=== PATIENT | male | born 1960 | race Caucasian/White ===

== ENCOUNTER 2022-08-09 09:08 | Emergency (ER) | payer BC, OTHER ==
[2022-08-09 09:18] VITALS: BP 177/99; PULSE 67; RESP 16; TEMP 98
--- NOTE | 2022-08-09 10:10 | XR ---
EXAMINATION TYPE: XR shoulder complete RT DATE OF EXAM: 08/09/2022 CLINICAL HISTORY: pain TECHNIQUE: Three views of the right shoulder are obtained. COMPARISON: None FINDINGS: There is no acute fracture/dislocation evident. The acromioclavicular and glenohumeral bryn int spaces appear within normal limits. The visualized ribs are intact and unremarkable. IMPRESSION: 1. There is no acute fracture or dislocation. ICD 10 NO FRACTURE, INITIAL EVALUATION
--- NOTE | 2022-08-09 10:27 | ED ---
Upper Extremity HPI - General Chief Complaint: Extremity Injury, Upper Stated Complaint: Rt shoulder pain Time Seen by Provider: 08/09/22 09:14 Source: patient, RN notes reviewed Mode of arrival: ambulatory Limitations: no limitations - History of Present Illness Initial Comments: This is a 61-year-old male who presents to the emergency department for right shoulder pain. States that the pain began this morning and radiates into the neck. Denies any chest pain or known injuries. States that he is having difficulty moving it due to the pain. He is not taking anything for symptoms. Denies any fevers, chills, sore throat, cough, dyspnea, chest pain, palpitations, abdominal pain, nausea, vomiting, diarrhea, back pain, or headaches. MD Complaint: Injury to:: right, shoulder - Related Data Previous Rx's Medication Instructions Recorded Meclizine [Antivert] 25 mg PO TID #12 tab 09/26/14 Metaxalone [Skelaxin] 400 mg PO TID PRN #15 tablet 08/09/22 predniSONE 50 mg PO QAM 5 Days #5 tablet 08/09/22 Allergies Allergy/AdvReac Type Severity Reaction Status Date / Time No Known Allergies Allergy Verified 08/09/22 09:18 Review of Systems ROS Statement: Those systems with pertinent positive or pertinent negative responses have been documented in the HPI. ROS Other: All systems not noted in ROS Statement are negative. Past Medical History Past Medical History: No Reported History History of Any Multi-Drug Resistant Organisms: None Reported Past Surgical History: Tonsillectomy Past Psychological History: No Psychological Hx Reported Smoking Status: Never smoker Past Alcohol Use History: None Reported Past Drug Use History: None Reported General Exam Limitations: no limitations General appearance: alert, in no apparent distress Head exam: Present: atraumatic, normocephalic, normal inspection Respiratory exam: Present: normal lung sounds bilaterally. Absent: respiratory distress, wheezes, rales, rhonchi, stridor Cardiovascular Exam: Present: regular rate, normal rhythm, normal heart sounds. Absent: systolic murmur, diastolic murmur, rubs, gallop, clicks Extremities exam: Present: other (Limited active range of motion of the right shoulder secondary to pain. Mild tenderness over the right AC joint. No obvious deformities, swelling, erythema, or ecchymosis.) Neurological exam: Present: alert, oriented X3, CN II-XII intact Psychiatric exam: Present: normal affect, normal mood Skin exam: Present: warm, dry, intact, normal color. Absent: rash Course Vital Signs 08/09/22 09:16 Temperature 98 F Pulse Rate 67 Respiratory 16 Rate Blood Pressure 177/99 O2 Sat by Pulse 98 Oximetry Medical Decision Making - Medical Decision Making This is a 61-year-old male who presents to the emergency department for right shoulder pain. X-rays obtained revealing no acute irregularities. Symptoms may be related to an overuse injury or other musculoskeletal pathology. Prescription for a course of prednisone and Skelaxin provided. He is instructed to take the Skelaxin at night until he knows how it affects him, as it may be sedating. After finishing the prednisone, he is advised to alternate with ibuprofen and Tylenol. Also instructed him to apply ice for 10-15 minutes every 2-3 hours. Return precautions reviewed in depth, the patient is instructed to return to the emergency department with any new, worsening, or concerning symptoms. Patient verbalized understanding. This case was discussed in detail with the attending ED physician. Presentation, findings, and treatment plan discussed in detail as well. - Radiology Data Radiology results: report reviewed, image reviewed Disposition Clinical Impression: Right shoulder pain Disposition: HOME SELF-CARE Instructions (If sedation given, give patient instructions): Shoulder Pain (ED) Additional Instructions: Return to the emergency department with any new, worsening, or concerning symptoms. Take the prednisone as prescribed for 5 days with Tylenol. After finishing the prednisone, take ibuprofen with Tylenol for additional relief. Take the muscle relaxant at night until you know how it affects you, as it may be sedating. Do not drive or operate machinery when you are taking this. Follow up with your primary care provider next week for reevaluation of your symptoms. Prescriptions: predniSONE 50 mg PO QAM 5 Days #5 tablet Metaxalone [Skelaxin] 400 mg PO TID PRN #15 tablet PRN Reason: Pain Is patient prescribed a controlled substance at d/c from ED?: No Referrals: Aram Samayoa DO [Primary Care Provider] - 1-2 days
== END 2022-08-09 11:10 | disposition home or self-care (01) ==
LOC: EC 09:08
DX: M25.511 Pain in right shoulder (principal)
CPT/HCPCS: 99283

== ENCOUNTER 2023-11-18 09:44 | Emergency (ER) | payer OTHER ==
--- NOTE | 2023-11-18 12:21 | ED ---
General Adult HPI - General Chief complaint: Extremity Injury, Lower Stated complaint: hip pain Time Seen by Provider: 11/18/23 11:20 Source: patient, RN notes reviewed Mode of arrival: ambulatory Limitations: no limitations - History of Present Illness Initial comments: Patient 62-year-old male witha past medical history, presented to the emergency room today with chief complaint of bilateral hip pain. Patient does admit that pain has been present for many years. He states left is worse than the right and believes that the pain just has been increasing and now causing pain and discomfort on the right side as well. States he did have some time off with the holiday break and went back to work yesterday seemed to aggravate things. He tried to limit ibuprofen had little relief. No fall or bladder incontinence retention. No saddle anesthesia. Does admit at times he feels some numbness in left side of the hip that occurs more often when sleeping. He states occasionally he does lay on the side. Denies any other complaints or any other symptoms at this time. Patient denies any recent fever, chills, shortness of breath, chest pain, back pain, abdominal pain, nausea or vomiting, numbness or tingling, headaches or visual changes, or any other complaints. - Related Data Previous Rx's Medication Instructions Recorded Meclizine [Antivert] 25 mg PO TID #12 tab 09/26/14 Metaxalone [Skelaxin] 400 mg PO TID PRN #15 tablet 08/09/22 predniSONE 50 mg PO QAM 5 Days #5 tablet 08/09/22 Allergies Allergy/AdvReac Type Severity Reaction Status Date / Time No Known Allergies Allergy Verified 11/18/23 10:21 Review of Systems ROS Statement: Those systems with pertinent positive or pertinent negative responses have been documented in the HPI. ROS Other: All systems not noted in ROS Statement are negative. Past Medical History Past Medical History: No Reported History History of Any Multi-Drug Resistant Organisms: None Reported Past Surgical History: Tonsillectomy Past Psychological History: No Psychological Hx Reported Smoking Status: Never smoker Past Alcohol Use History: None Reported Past Drug Use History: None Reported General Exam - General Exam Comments Initial Comments: General: The patient is awake and alert, in no distress, and does not appear acutely ill. Eye: Pupils are equal, round and reactive to light, extra-ocular movements are intact. No nystagmus. There is normal conjunctiva bilaterally. No signs of icterus. Ears, nose, mouth and throat: There are moist mucous membranes and no oral lesions. Neck: The neck is supple, there is no tenderness or JVD. Cardiovascular: There is a regular rate and rhythm. No murmur, rub or gallop is appreciated. Respiratory: Lungs are clear to auscultation, respirations are non-labored, breath sounds are equal. No wheezes, stridor, rales, or rhonchi. Gastrointestinal: Soft nontender. Musculoskeletal: Patient is able to weight-bear weight. Does have discomfort both left and right hips worse with certain flexion, extension of the left hip. Neurological: A&O x 3. CN II-XII intact, There are no obvious motor or sensory deficits. Coordination appears grossly intact. Speech is normal. Skin: Skin is warm and dry and no rashes or lesions are noted. Psychiatric: Cooperative, appropriate mood & affect, normal judgment. Limitations: no limitations Course Vital Signs 11/18/23 11/18/23 10:18 11:30 Temperature 98.0 F 98.0 F Pulse Rate 64 61 Respiratory 18 18 Rate Blood Pressure 151/91 161/98 O2 Sat by Pulse 99 96 Oximetry Medical Decision Making - Medical Decision Making History was obtained from patient/Nurse/Family/ Initial assessment and chief complaint: Hip pain and bilateral Chronic conditions affecting care: None Social determinants affecting care: None Differential diagnosis included, but not limited to: Fracture, contusion, sprain, arthritis Any imaging that may have been performed was also reviewed. I did an independent interpretation of the patient's imaging. My interpretation of x-ray of the bilateral hips shows extensive arthritic changes. No fracture dislocation. 60-year-old male presenting to the ER today with chief complaint of bilateral hip pain. He does admit that the left is worse in the right. Patient denies any new injury or trauma. He states this progressively got worse over the last several years. Patient x-ray does show extensive arthritic changes. Was discussed about following with orthopedics for further evaluation. The patient is advised to do Tylenol Motrin as needed. Advised return if any symptoms increase worsen concerns. Disposition Clinical Impression: Hip pain Disposition: HOME SELF-CARE Condition: Good Instructions (If sedation given, give patient instructions): Arthralgia (ED) Additional Instructions: Please follow-up with orthopedics as discussed. Return to emergency room if any symptoms increase or worsen. Is patient prescribed a controlled substance at d/c from ED?: No Referrals: None,Stated [Primary Care Provider] - 1-2 days Kim Nolan, [Doctor of Osteopathic Medicine] - 1-2 days Time of Disposition: 13:19
--- NOTE | 2023-11-18 13:01 | XR ---
EXAMINATION TYPE: XR Hip Bilateral and AP pelvis DATE OF EXAM: 11/18/2023 12:13 PM CLINICAL INDICATION:Male, 62 years old with history of pain; [facility] COMPARISON: None. TECHNIQUE: XR Hip Bilateral and AP pelvis; hip was examined in the frontal and lateral projections an d a AP pelvis. FINDINGS: There is flattening of the femoral heads with [id number] articulation of the hips and ost eophyte formation. No evidence for acute process, joint dislocation or significant soft tissue swelli ng. IMPRESSION: 1. End-stage osteoarthrosis changes of the hips. 2. No evidence of fracture.
[2023-11-18 13:42] VITALS: BP 154/94; PULSE 60; RESP 17; TEMP 97.8
== END 2023-11-18 13:26 | disposition home or self-care (01) ==
LOC: EC 09:44
DX: M16.0 Bilateral primary osteoarthritis of hip (principal)
CPT/HCPCS: 73521; 99283

== ENCOUNTER → 2024-01-07 | Outpatient (CLI) | payer OTHER ==
[2024-01-07 15:02] LABS: Partial Thromboplastin Time 25.1 sec (22.0-30.0); Prothrombin Time 10.7 sec (10.0-12.5)
== END | disposition home or self-care (01) ==
LOC: LABPAT 12:56
PROVIDERS: ATTEND Orthopaedic Surgery
DX: Z01.812 Encounter for preprocedural laboratory examination (principal); M16.12 Unilateral primary osteoarthritis, left hip; Z22.322 Carrier or suspected carrier of Methicillin resistant Staphylococcus aureus
CPT/HCPCS: 36415; 85610; 85730; 86850; 86900; 86901; 87070

== ENCOUNTER → 2024-02-19 | Outpatient (CLI) | payer OTHER ==
[2024-02-19 13:05] LABS: Partial Thromboplastin Time 24.4 sec (22.0-30.0); Prothrombin Time 10.6 sec (10.0-12.5)
[2024-02-19 15:44] LABS: ALT 32 U/L (10-49); AST 15 U/L (14-35); Albumin 4.7 g/dL (3.8-4.9); Albumin/Globulin Ratio 1.81 Ratio (1.60-3.17); Alkaline Phosphatase 97 U/L (41-126); BUN/Creat Ratio 16.57 Ratio (12.00-20.00); Blood Urea Nitrogen 11.6 mg/dL (9.0-27.0); Calcium 10.3 mg/dL (8.7-10.3); Carbon Dioxide 27.9 mmol/L (21.6-31.8); Chloride 106 mmol/L (96-109); Globulin 2.6 g/dL (1.6-3.3); Glucose 132 mg/dL (70-110); Potassium 5.1 mmol/L (3.5-5.5); Sodium 143 mmol/L (135-145); Total Bilirubin 0.7 mg/dL (0.3-1.2); Total Protein 7.3 g/dL (6.2-8.2)
[2024-02-19 15:52] LABS: HCT 44.1 % (39.6-50.0); HGB 15.2 g/dL (13.0-17.0); MCH 31.1 pg (27.0-32.0); MCHC 34.5 g/dL (32.0-37.0); MCV 90.2 FL (80.0-97.0); Mean Platelet Volume 10.7 FL (9.5-12.2); NRBC Per 100 WBC 0 X 10*3/uL (0.00-0.01); Platelet Count 240 X 10*3/uL (140-440); RBC 4.89 X 10*6/uL (4.40-5.60); WBC 7.13 X 10*3/uL (4.50-10.00)
== END | disposition home or self-care (01) ==
LOC: LABPAT 11:24
PROVIDERS: ATTEND Orthopaedic Surgery
DX: Z01.812 Encounter for preprocedural laboratory examination (principal); M16.12 Unilateral primary osteoarthritis, left hip
CPT/HCPCS: 80053; 85027; 85610; 85730; 86850; 86900; 86901; 93005

== ENCOUNTER 2024-02-23 10:12 | Day surgery (SDC) | payer OTHER ==
[2024-01-06 12:06] VITALS: BMI 31.4
[~2024-02-23 10:12] MED LIST: HYDROmorphone 0.5 MG/0.5 ML SYRINGE IVP PRN; LIDOCAINE 1% (10MG/ML) FOR IV START INTRADERMA PRN; MIDAZOLAM 2 MG/2 ML VIAL IV PRN
[2024-02-23] MEDS: GABAPENTIN 300 MG CAP PO PRN (13:54)
[2024-02-23] MEDS: LACTATED RINGERS 1,000 ML IV SCH ×2 (13:54→19:39)
[2024-02-23] MEDS: MELOXICAM 7.5 MG TAB PO PRN (13:54)
[2024-02-23] MEDS: ACETAMINOPHEN TAB 500 MG TAB PO PRN (13:54)
[2024-02-23] MEDS: ONDANSETRON 4 MG/2 ML VIAL IVP ONE (13:55)
[2024-02-23] MEDS: DEXAMETHASONE SOD PHOSPHATE 4 MG/ML 1 ML VIAL IV ONE ×3 (13:56→19:39)
[2024-02-23] MEDS: MIDAZOLAM 2 MG/2 ML VIAL IVP ONE (14:31)
--- NOTE | 2024-02-23 14:45 | P.ANPRN ---
Procedure Note - Anesthesia - Nerve Block Performed Left Robby Single Time Out Performed: Yes Date of Procedure: 02/23/24 Procedure Start Time: 14:30 Procedure Stop Time: 14:40 Location of Patient: PreOp Indication: Acute Post-Operative Pain, Analgesia, Requested by Surgeon Sedation Type: Sedate with meaningful contact maintained Preparation: Sterile Prep Position: Supine Catheter: None Needle Types: Pajunk Needle Gauge: 21 Ultrasound used to visualize needle placement: Yes Ultrasound used to observe medication spread: Yes Injectate: 0.5% Ropivacaine (see comment for volume) (Ropiv 25 ml +decadron 4mg) Blood Aspirated: No Pain Paresthesia on Injection Noted: No Resistance on Injection: Normal Image Stored and Saved: Yes Events: Uneventful and Well Tolerated
[2024-02-23] MEDS ORDERED: ROPIVACAINE 5 MG/ML 30 ML VIAL ONE (15:45)
[2024-02-23] MEDS ORDERED: LIDOCAINE 1% INJ 10MG/ML (20 ML MDV) ONE (15:45)
[2024-02-23] MEDS ORDERED: DEXAMETHASONE SOD PHOSPHATE 4 MG/ML 1 ML VIAL ONE (15:45)
[2024-02-23] MEDS ORDERED: MIDAZOLAM 2 MG/2 ML VIAL ONE (15:45)
[2024-02-23] MEDS ORDERED: TRANEXAMIC 1,000 MG/100ML-NACL PREMIX BAG ONE (15:45)
[2024-02-23] MEDS ORDERED: NEOSTIGMINE 1 MG/ML 10 ML VIAL ONE (15:45)
[2024-02-23] MEDS ORDERED: SUCCINYLCHOLINE CHLORIDE 200 MG/10 ML VIAL IV ONE (15:45)
[2024-02-23] MEDS ORDERED: fentaNYL (PF) 50 MCG/ML 2 ML AMP ONE (15:45)
[2024-02-23] MEDS ORDERED: LABETALOL 5 MG/ML VIAL MDV ONE (15:45)
[2024-02-23] MEDS ORDERED: KETAMINE HCL IN 0.9 % NACL 50 MG/5 ML SYRINGE ONE (15:45)
[2024-02-23] MEDS ORDERED: GLYCOPYRROLATE 0.2 MG/ML 2 ML VIAL ONE (15:45)
[2024-02-23] MEDS ORDERED: PROPOFOL 10 MG/ML 20 ML VIAL IV ONE (15:45)
[2024-02-23] MEDS ORDERED: ROCURONIUM 10 MG/ML (5 ML VIAL) IV ONE (15:45)
[2024-02-23] MEDS: TRANEXAMIC 1,000 MG/100ML-NACL 1,000 MG in SALINE 1 100ML.BAG IVPB PRN ×2 (16:00→17:05)
[2024-02-23] MEDS: ROPIVACAINE 5 MG/ML 30 ML VIAL MISCELLANE ONE ×2 (16:17→17:06)
--- NOTE | 2024-02-23 17:16 | P.OP ---
Date of Procedure: 02/23/24 Preoperative Diagnosis: severe osteoarthritis left hip Postoperative Diagnosis: severe osteoarthritis left hip Procedure(s) Performed: left total hip arthroplasty with a direct anterior approach Implants: [employer] Polarstem standard size 3 with a collar [employer] R3, 3 hole hemispherical acetabular shell, 52 mm [employer] Reflection 6.5 mm cancellus screw, 20 mm 2, 25 mm [employer] R3, XLPE 20 acetabular liner [employer]hew Oxinium femoral head 36 mm, -3 All components were press-fit. The articulation is Oxinium on polyethylene. Anesthesia: GETA Surgeon: Von Berry Director Call Center Sales #1: Karishma Monsalve Estimated Blood Loss (ml): 750 Pathology: none sent Condition: stable Disposition: PACU Indications for Procedure: After failure of conservative treatment we discussed the surgical and non surgical treatment options at length. Patient wishes to proceed with a total hip arthroplasty with a direct anterior approach. Complications specific to this procedure were discussed at length, including but not limited to infection, leg length discrepancy, dislocation, nerve injury, and fracture. Covid-19 was also discussed at length with the patient, and they are aware of the current policies and procedures. The patient was given the option of delaying surgery, but they elect to proceed knowing these risks. Patient is aware of all these complications and informed consent was obtained Operative Findings: the operative findings are consistent with severe osteoarthritis of the left hip Description of Procedure: The patient was seen and evaluated in the preoperative area and the consent was reviewed. The operative site was marked with a skin marker. The patient verified the procedure and operative site. A RM block was placed by anesthesia in the preoperative area. The patient was then brought to the operating room and given preoperative antibiotics intravenously. 1 g of Tranexamic acid was also given intravenously. A general anesthetic was administered by the anesthesia department. The patient was then placed on the [place] table with the bony prominences well-padded. The hip area was then prepped with a ChloraPrep solution and draped in the usual sterile fashion. A universal timeout was then performed, which confirmed the patient's name, surgical site, ALLERGIES, and procedure being performed on the consent. Next the incision site was located at 1 cm distal and 4 cm lateral to the anterior superior iliac spine. The skin and subcutaneous tissues were sharply incised. Incision was carefully dissected down to the fascia overlying the tensor fascia brandi muscle. This fascia was then incised in line with the muscle fibers. Care was taken to stay laterally in order to avoid injuring the lateral femoral cutaneous nerve. Next, using blunt finger dissection, the tensor fascia brandi muscle was dissected off its investing fascia. The muscle was then carefully retracted laterally with a cobra retractor over the lateral neck of the femur. Next, the circumflex vessels were identified and cauterized using the Aquamantis device. The anterior hip capsule was then exposed. The capsule was then opened and an inverted T fashion. The retractors were then placed intracapsularly. The retractors were maintained intracapsular throughout the procedure. The proximal femur was then visualized. Fluoroscopic x-rays were then taken in order to evaluate the preoperative leg lengths. A small amount of traction was placed on the leg. The femoral neck was then osteotomized at the appropriate level above the lesser trochanter. A small wedge of bone was then removed from the remaining femoral head. Next, using a corkscrew the femoral head was removed from the acetabulum. On gross visual inspection, the femoral head had complete loss of articular cartilage and multiple periarticular osteophytes. The femoral head was then measured. Attention was then turned to the acetabulum. The acetabulum was exposed and any remaining labrum was excised. Sequential reaming of the acetabulum was performed using fluoroscopic guidance until there was a good bed of bleeding cancellus bone. When the appropriate size was reached, a trial was then placed. The position and fit of the trial was checked with fluoroscopy. The trial was then removed. Then, using fluoroscopic guidance, the final implant was impacted at 20 of anteversion and 40 of abduction, and fully seated in the acetabulum. 2 screws were then placed in the acetabulum. Again fluoroscopy was used to check position of the screws. Next, the liner was then impacted, with a 20 elevated liner located in the anterior superior quadrant. Component locking was confirmed. Attention was then directed to the femur. With the aid of the [place] table, the femur was externally rotated to approximately 130, extended, and adducted under the opposite leg. A side hook was then placed under the proximal femur, and the side hook elevator was used to elevate the proximal femur while releasing the capsule. Retractors were then placed. A capsular release was performed, as well as a release of the conjoined tendon, which afforded excellent visualization of the proximal femur. Next, a box osteotome was used to lateralize the proximal femur. A hand tacker was then used to locate the femoral canal. Sequential broaching was then performed with appropriate size which afforded excellent fixation in the proximal femur. A trial was then placed with appropriate head and neck, and the hip was gently reduced with the aid of the [place] table. Fluoroscopy was then used to check position of the components, as well as to evaluate the leg lengths and offset. The leg lengths and offset were measured as closely as possible to ensure stability of the hip. The hip was then gently dislocated and the trials were then removed. Final implants were then impacted and the hip was again reduced. Final fluoroscopic x-rays confirmed that the components were in anatomic position. The leg lengths and offset were measured and were found to coincide with the trial measurements. The hip was also taken through range of motion, and found to be stable. The hip was then copiously irrigated with antibiotic solution with pulsatile lavage. The hip was then irrigated with Irrisept solution. The soft tissues were then injected with a ropivacaine solution. A second dose of 1 g of Tranexamic acid was also given intravenously. The fascia was then closed with 2-0 strata fix suture. The subcutaneous tissue was closed with 3-0 Vicryl. The subcuticular tissue was closed with 3-0 strata fix suture. The skin was then closed with Exofin skin glue. After the glue and dried, and Optifoam silver impregnated dressing was applied. The patient was then transferred to the recovery room in stable condition. The advertising assistant LINDSEY Herring was required due to the complexity of surgery, and the need for skilled surgical training specialist for positioning, draping, exposure, retraction, and closure of the wound.
[2024-02-23] MEDS ORDERED: MAGNESIUM HYDROXIDE 2,400 MG/30 ML CUP PO PRN (17:38)
[2024-02-23] MEDS ORDERED: ONDANSETRON 4 MG/2 ML VIAL IVP PRN (17:38)
[2024-02-23] MEDS ORDERED: NALOXONE 0.4 MG/ML 1 ML VIAL IV PRN (17:38)
[2024-02-23] MEDS ORDERED: HYDROmorphone 0.5 MG/0.5 ML SYRINGE IVP PRN ×2 (17:38)
[2024-02-23] MEDS ORDERED: HYDROmorphone 1 MG/ML 1 ML SYRINGE IVP PRN (17:38)
[2024-02-23] MEDS ORDERED: HYDROcodone/APAP 7.5-325MG 1 EACH TAB PO PRN (17:40)
[2024-02-23] MEDS: HYDROmorphone 0.5 MG/0.5 ML SYRINGE IVP PRN (17:59)
--- NOTE | 2024-02-23 18:41 | XR ---
EXAMINATION TYPE: XR Hip Limited LT DATE OF EXAM: 02/23/2024 6:20 PM CLINICAL INDICATION:Male, 63 years old with history of Status post hip surgery, assess surgical align ment; , [facility] COMPARISON: X-ray pelvis and hips 11/18/2023 TECHNIQUE AND FINDINGS: Single frontal view of the left hip. A total hip arthroplasty is in place, appears intact and normall y aligned. One of the acetabular screws appears to project slightly medial to the iliopectineal line. No abnormal perihardware lucency or fracture. No significant malalignment. Soft tissues show no unex pected radiopaque foreign body. Coarse chronic appearing ossific or calcific densities over the super olateral aspect of the hip. Some regional soft tissue gas is present, not unexpected postoperative. IMPRESSION: Status post placement of left total hip arthroplasty. No evidence of complication.
--- NOTE | 2024-02-23 19:28 | FL ---
EXAMINATION TYPE: FL guidance operating room, XR Hip Limited LT Intraoperative/procedural fluoroscopi c services were provided. Total fluoroscopy time is 25 seconds with a total of 3 submitted images to PACS. Please see the operative/procedural note for further details. DAP: 1.3610 Gycm2
[2024-02-23] MEDS: ASPIRIN 325 MG TAB PO SCH (21:14)
[2024-02-23] MEDS: SENNOSIDES-DOCUSATE SODIUM 1 EACH TAB PO SCH (21:14)
[2024-02-23] MEDS: SODIUM CHLORIDE 0.9% 1,000 ML IV SCH (21:28)
[2024-02-24 02:57] VITALS: TEMP 98.3
[2024-02-24] MEDS: HYDROcodone/APAP 7.5-325MG 1 EACH TAB PO PRN (06:33)
[2024-02-24 08:02] VITALS: BP 126/81; PULSE 96; RESP 16
[2024-02-24 08:48] LABS: Basophils # (A) 0.01 X 10*3/uL (0.00-0.10); Basophils % (A) 0.1 %; Eosinophils # (A) 0 X 10*3/uL (0.04-0.35); Eosinophils % (A) 0 %; HCT 37.2 % (39.6-50.0); HGB 12.6 g/dL (13.0-17.0); Lymphocytes # (A) 1.08 X 10*3/uL (0.90-5.00); Lymphocytes % (A) 7.9 %; MCH 30.6 pg (27.0-32.0); MCHC 33.9 g/dL (32.0-37.0); MCV 90.3 FL (80.0-97.0); Mean Platelet Volume 10.6 FL (9.5-12.2); Monocytes # (A) 1.14 X 10*3/uL (0.20-1.00); Monocytes % (A) 8.4 %; NRBC Per 100 WBC 0 X 10*3/uL (0.00-0.01); Neutrophils # (A) 11.31 X 10*3/uL (1.80-7.70); Neutrophils % (A) 83.1 %; Platelet Count 252 X 10*3/uL (140-440); RBC 4.12 X 10*6/uL (4.40-5.60); RDW 12.1 % (11.5-14.5); WBC 13.61 X 10*3/uL (4.50-10.00)
--- NOTE | 2024-02-24 10:30 | P.DS ---
Providers Expected date of discharge: 02/24/24 Attending physician: Von Berry Consults: 02/23/24 17:38 Consult Physician Routine Consulting Provider: Jarrett Tinsley Consult Reason/Comments: medical management Do you want consulting provider notified?: Yes Primary care physician: Michael De - Discharge Diagnosis(es) (1) Osteoarthritis of left hip Current Visit: Yes Status: Acute (2) S/P total hip arthroplasty Current Visit: Yes Status: Acute Hospital Course: This is a 63-year-old male with known history of degenerative arthritis of the left hip. The patient presented for evaluation as an outpatient. After discussion and consideration patient elects to proceed with total hip arthroplasty. The patient is seen preoperatively by Dr. Berry and medically cleared for surgery by their primary care physician. Patient is admitted to [facility] on 02/23/2024 for total hip arthroplasty. The procedure is performed without complication or sequelae. The patient is doing well postoperatively. Labs and vital signs are stable on day of discharge. On day of discharge patient's hip incision is healing well. There is minimal erythema. There is no drainage noted at this time. There is minimal soft tissue swelling to the hip and thigh. Patient has full foot and ankle motion without difficulty or pain. Calf is soft and nontender to palpation. Neurovascular status to the left lower extremity is intact. Patient is dis charged home in good condition. Please see med rec for accurate list of home medications. Plan - Discharge Summary Discharge Rx Participant: No New Discharge Prescriptions: New Sennosides [Senokot] 2 tab PO DAILY PRN #60 tablet PRN Reason: Constipation Aspirin 325 mg PO BID #60 tab HYDROcodone/APAP 7.5-325MG [[place] 7.5-325] 1 - 2 tab PO Q6H PRN #32 tab PRN Reason: Pain Discharge Medication List Aspirin 325 mg PO BID #60 tab 02/23/24 [Rx] HYDROcodone/APAP 7.5-325MG [[place] 7.5-325] 1 - 2 tab PO Q6H PRN #32 tab 02/23/24 [Rx] Sennosides [Senokot] 2 tab PO DAILY PRN #60 tablet 02/23/24 [Rx] Follow up Appointment(s)/Referral(s): [facility], [NON-STAFF] - As Needed Von Berry DO [Doctor of Osteopathic Medicine] - 2 Weeks Activity/Diet/Wound Care/Special Instructions: Weightbearing as tolerated with walker. Leave dressing intact. Dressing may be removed by home care nurse or by patient in 7 days. Then change dressing twice daily until follow up. May shower with initial dressing intact and after removal. If dressing become saturated, please remove. Please take aspirin 325mg twice daily for 30 days to prevent blood clots. Recommend use of compression stockings daily until follow up to help prevent swelling and blood clots. May remove at night before sleeping. Please follow-up with [facility] in 2 weeks and call with any questions or concerns, . Discharge Disposition: HOME WITH HOME HEALTH SERVICES
--- NOTE | 2024-02-24 20:26 | P.CONS ---
History of Present Illness - Reason for Consult Consult date: 02/24/24 Medical management Requesting physician: Von Berry - Chief Complaint Left hip surgery - History of Present Illness This is a pleasant 63-year-old patient who follows with Dr. Michael Saba. Be due loud music over the years patient developed tinnitus. Also has varicose veins. Underwent left total hip arthroplasty. Pain controlled. Last night patient does have dizziness which is resolved this morning. Also had nausea. Did tolerate some breakfast today. Sitting up in a chair. No chest pain or shortness of breath. Review of systems: GEN.: None EYES: None HEENT: Tinnitus with decreased hearing NECK: None RESPIRATORY: None CARDIOVASCULAR: None GASTROINTESTINAL: None GENITOURINARY: None MUSCULOSKELETAL: Joint pains LYMPHATICS: None HEMATOLOGICAL: None PSYCHIATRY: None NEUROLOGICAL: None Social history: . No smoking no alcohol. Physical examination: VITAL SIGNS: 98.3, 96, 16, 126/81, 98% room air GENERAL: BMI 30.7, sitting up in chair awake comfortable. EYES: Pupils equal. Conjunctiva luis felipe l. HEENT: External appearance of nose and ears normal, oral cavity grossly normal. NECK: JVD not raised; masses not palpable. HEART: First and second heart sounds are normal; no edema. LUNGS: Respiratory rate normal; clear to auscultation. ABDOMEN: Soft, nontender, liver spleen not palpable, no masses palpable. PSYCH: Alert and oriented x3; mood and affect luis felipe l. MUSCULOSKELETAL:No Clubbing/cyanosis;muscles-grossly intact. Dressing over the left hip incision site. NEUROLOGICAL: Cranial nerves grossly intact; no facial asymmetry, power and sensation grossly intact. LYMPHATICS: No lymph nodes palpable in the axilla and neck INVESTIGATIONS, reviewed in the clinical context: February 24, 2024: White count 13.6 hemoglobin 12.6 platelets 252 February 18: White count 7.1 hemoglobin 15.2 platelets 240 potassium 5.1 creatinine 0.7 Assessment plan plan: -Left total hip arthroplasty by Dr Berry Aspirin for DVT prophylaxis. [place] for pain control. -Chronic tinnitus -Chronic hard of hearing -Acute blood loss anemia expected from surgery Add ferrous sulfate -Reactive leukocytosis, no clinical evidence of infection. Patient has no urinary or respiratory symptoms. Incision healing well per orthopedics. Care was discussed with patient. Questions answered. Thank you Dr. Heithoff - Past Medical History Past Medical History: Hearing Disorder / Deafness Additional Past Medical History / Comment(s): ">20 yr ago exposure to excessive carbon monoxide, had heart checked, Tinnitus. Varicose veins. "Possible Sleep Apnea", no testing done. History of Any Multi-Drug Resistant Organisms: None Reported Past Surgical History: Tonsillectomy Past Anesthesia/Blood Transfusion Reactions: No Reported Reaction, Motion Sickness Additional Past Anesthesia/Blood Transfusion Reaction / Comm: No hx of blood transfusion. Past Psychological History: No Psychological Hx Reported Smoking Status: Never smoker Past Alcohol Use History: None Reported Additional Past Alcohol Use History / Comment(s): No alcohol since 1983. Past Drug Use History: Marijuana Additional Drug Use History / Comment(s): No Marijuana since 1983. - Past Family History Brother(s) Family Medical History: Cancer Mother Family Medical History: Cancer Medications and Allergies Home Medications Medication Instructions Recorded Confirmed Type Aspirin 325 mg PO BID #60 tab 02/23/24 Rx HYDROcodone/APAP 7.5-325MG [[place] 1 - 2 tab PO Q6H PRN #32 tab 02/23/24 Rx 7.5-325] Sennosides [Senokot] 2 tab PO DAILY PRN #60 tablet 02/23/24 Rx Allergies Allergy/AdvReac Type Severity Reaction Status Date / Time dextromethorphan AdvReac "[place] like Verified 02/23/24 13:28 [From Comtrex Cold-Cough] something crawling mone my skin." phenylephrine AdvReac "[place] like Verified 02/23/24 13:28 [From Comtrex Cold-Cough] something crawling mone my skin." Physical Exam Vitals: Vital Signs Temp Pulse Resp BP Pulse Ox 02/24/24 08:12 96 16 02/24/24 07:10 98.3 F 96 16 126/81 98 02/24/24 01:49 98.3 F 97 18 115/80 97 02/23/24 22:00 84 117/79 95 02/23/24 21:45 86 132/84 94 L 02/23/24 21:30 87 133/90 96 02/23/24 21:15 83 108/75 95 02/23/24 21:00 81 121/80 96 02/23/24 20:45 80 124/77 96 02/23/24 20:30 85 127/87 98 02/23/24 20:15 84 128/86 91 L 02/23/24 20:00 73 17 119/78 96 02/23/24 19:00 85 15 125/69 95 02/23/24 18:45 80 14 122/76 95 02/23/24 18:30 78 14 124/74 97 02/23/24 18:15 69 14 145/81 97 02/23/24 18:00 79 14 135/84 97 02/23/24 17:43 97.4 F L 84 12 181/106 97 02/23/24 14:48 67 17 154/89 97 02/23/24 13:34 97.4 F L 55 L 18 196/95 100 Intake and Output 02/23/24 02/24/24 02/24/24 22:59 06:59 14:59 Intake Total 1350 200 Output Total 750 Balance 600 200 Intake: IV 1350 Oral 200 Output: Estimated Blood Loss 750 Other: # Voids 2 Weight 94.4 kg Results CBC & Chem 7: 02/24/24 03:53 Labs: Abnormal Lab Results - Last 24 Hours (Table) 02/24/24 Range/Units 03:53 WBC 13.61 H (4.50-10.00) X 10*3/uL RBC 4.12 L (4.40-5.60) X 10*6/uL Hgb 12.6 L (13.0-17.0) g/dL Hct 37.2 L (39.6-50.0) % Immature Gran # 0.07 H (0.00-0.04) X 10*3/uL Neutrophils # 11.31 H (1.80-7.70) X 10*3/uL Monocytes # 1.14 H (0.20-1.00) X 10*3/uL Eosinophils # 0 L (0.04-0.35) X 10*3/uL
== END 2024-02-24 15:44 | disposition home health service (06) ==
LOC: OR 10:12 → 4SSUR 17:29 → OR 02-24 15:44
PROVIDERS: ATTEND Orthopaedic Surgery
DX: M16.12 Unilateral primary osteoarthritis, left hip (principal); G89.18 Other acute postprocedural pain; Z82.49 Family history of ischemic heart disease and other diseases of the circulatory system; Z83.3 Family history of diabetes mellitus; Z79.899 Other long term (current) drug therapy
CPT/HCPCS: 97162; 97535; 97166; 64447; 85025; 73501; 27130; C1776; J2250; J1100; J0690 ×2; J2405; J2795; J1170